=== PATIENT | male | born 1970 | race Caucasian/White ===

== ENCOUNTER 2022-10-14 21:59 | Emergency (ER) | payer SELFPAY ==
[~2022-10-14] VITALS: Ht 165.1 cm; Wt 68.0 kg
[2022-10-14 22:44] LABS: HEMATOCRIT. 35.6 % (42.0-52.0); HEMOGLOBIN. 11.7 g/dL (14.0-18.0); MEAN CORPUSCULAR HEMOGLOBIN 28.5 pg (28.0-32.0); MEAN CORPUSCULAR VOLUME 86.6 fL (80.0-94.0); MEAN PLATELET VOLUME 7.7 fl (7.4-10.4); PLATELET 258 x1000/uL (130-400); RED BLOOD CELL COUNT 4.11 mill/uL (4.7-6.1); RED CELL DISTRIBUTION WIDTH 13.9 % (11.6-14.6)
[2022-10-14 22:45] LABS: BG BASE EXCESS -4.4 mmol/L (-2.0-2.0); BG CARBOXYHEMOGLOBIN 0.5 % (0.5-1.5); BG DEOXYHEMOGLOBIN 1.8 % (0.0-5.0); BG FRACTION INSPIRED OXYGEN 21; BG HCO3 ACT 19.5 mmol/L (22.0-26.0); BG METHEMOGLOBIN 0.3 % (0.0-1.5); BG OXYGEN SATURATION 98.2 % (92.0-98.5); BG OXYHEMOGLOBIN 97.4 % (94.0-97.0); BG PCO2 32.5 mmHg (35.0-45.0); BG PH 7.397 (7.350-7.450); BG PO2 109.1 mmHg (75.0-100.0); BG SAMPLE SITE RIGHT RADIAL; BG TOTAL HEMOGLOBIN 12.4 g/dL (12.0-18.0); BG VENT MODE ROOM AIR
[2022-10-14 22:50] LABS: CHLORIDE 109 mEq/L (98-107)
[2022-10-14 22:53] LABS: PROTHROMBIN TIME 10.7 sec (9.6-11.0)
[2022-10-14 23:00] LABS: ETHANOL BLOOD < 10 mg/dL (-10)
[2022-10-14 23:07] LABS: PLATELET ESTIMATE NORMAL
[2022-10-15 02:15] VITALS: BP 122/66
== END 2022-10-15 05:05 | disposition home or self-care (01) ==
LOC: ER 21:59
DX: E11.649 Type 2 diabetes mellitus with hypoglycemia without coma (principal); I10 Essential (primary) hypertension
CPT/HCPCS: 36415; 36600; 71045; 80053; 80320; 82375; 82805; 82962; 83605; 84145; 84484; 85025; 93005; 99285; G0480